=== PATIENT | male | born 1975 | race Caucasian/White ===

== ENCOUNTER 2018-10-29 18:41 | Emergency (ER) | payer OTHER ==
--- NOTE | 2018-10-29 18:52 | ED ---
General Adult HPI - General Stated complaint: Abd pain Time Seen by Provider: 10/29/18 18:44 - History of Present Illness Initial comments: Dictation was produced using [employer] dictation software. please excuse any grammatical, word or spelling errors. Chief Complaint: 43-year-old male presents with abdominal pain. History of Present Illness: Patient is a 43-year-old male who presents with chief complaint of epigastric abdominal pain. Patient reports that his symptoms began today. He was transferred by EMS from [facility] detox facility. 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 He was given 2 doses of Subutex while there. Patient is 72 hours from his last ingestion of methadone. Patient states that his symptoms lasted for several hours however improved prior to arrival. About one month ago patient had hernia surgery repair. Denies any nausea vomiting diarrhea. The ROS documented in this emergency department record has been reviewed and confirmed by me. Those systems with pertinent positive or negative responses have been documented in the HPI. All other systems are other negative and/or n oncontributory. PHYSICAL EXAM: General Impression: Alert and oriented x3, not in acute distress HEENT: Normocephalic atraumatic, extra-ocular movements intact, pupils equal and reactive to light bilaterally, mucous membranes moist. Cardiovascular: Heart regular rate and rhythm, S1&S2 audible, no murmurs, rubs or gallops Chest: Lungs clear to auscultation bilaterally, no rhonchi, no wheeze, no rales Abdomen: Bowel sounds present, abdomen soft, diffuse abdominal tenderness, non- distended, no organomegaly Musculoskeletal: Pulses present and equal in all extremities, no peripheral edema Motor: no focal deficits noted Neurological: CN II-XII grossly intact, no focal motor or sensory deficits noted Skin: Intact with no visualized rashes Psych: Normal affect and mood ED course: 43-year-old male presents with chief complaint of abdominal pain. All signs upon arrival are within acceptable limits.Laboratory evaluation was performed. IV nonacute. No leukocytosis. Abdominal labs unremarkable. Urinalysis negative. KUB x-ray shows no acute processes. Patient is reevaluated and found to be in stable medical condition. He denies any abdominal pain at this time. Patient clear for disposition back to [facility] for resumption of detoxification. At this point there is no clear obvious source however patient is asymptomatic at this time - Related Data Home Medications Medication Instructions Recorded Confirmed Acetaminophen Tab [Tylenol Tab] 650 mg PO Q4H PRN 10/29/18 10/29/18 Buprenorphine HCl [Subutex] See Taper SL DIRECTED 10/29/18 10/29/18 Calcium/Magnesium 1 - 2 tab PO TID PRN 10/29/18 10/29/18 Chlorpheniramine Maleate 4 mg PO Q4H PRN 10/29/18 10/29/18 [Chlor-Trimeton] Ibuprofen [Motrin] 600 mg PO Q6H PRN 10/29/18 10/29/18 Mirtazapine [Remeron] 15 - 30 mg PO HS PRN 10/29/18 10/29/18 Multivitamins, Thera [Multivitamin 1 tab PO DAILY 10/29/18 10/29/18 (formulary)] Ondansetron HCl [Zofran] 8 mg PO Q6H PRN 10/29/18 10/29/18 Ondansetron [Zofran] 4 mg IM Q6H PRN 10/29/18 10/29/18 Thiamine [Vitamin B-1] 100 mg PO DAILY 10/29/18 10/29/18 busPIRone HCl [Buspar] 10 mg PO TID PRN 10/29/18 10/29/18 traZODone HCL 50 - 150 mg PO HS 10/29/18 10/29/18 Allergies Allergy/AdvReac Type Severity Reaction Status Date / Time No Known Allergies Allergy Verified 10/29/18 20:01 Review of Systems ROS Statement: Those systems with pertinent positive or pertinent negative responses have been documented in the HPI. ROS Other: All systems not noted in ROS Statement are negative. Course Vital Signs 10/29/18 18:52 Temperature 98.9 F Pulse Rate 82 Respiratory 18 Rate Blood Pressure 125/82 O2 Sat by Pulse 98 Oximetry Medical Decision Making - Lab Data Result diagrams: 10/29/18 18:59 10/29/18 18:59 Lab Results 10/29/18 10/29/18 10/29/18 Range/Units 18:59 18:59 20:24 WBC 7.6 (3.8-10.6) k/uL RBC 4.64 (4.30-5.90) m/uL Hgb 13.7 (13.0-17.5) gm/dL Hct 41.6 (39.0-53.0) % MCV 89.5 (80.0-100.0) fL MCH 29.6 (25.0-35.0) pg MCHC 33.0 (31.0-37.0) g/dL RDW 15.9 H (11.5-15.5) % Plt Count 258 (150-450) k/uL Neutrophils % 66 % Lymphocytes % 20 % Monocytes % 6 % Eosinophils % 5 % Basophils % 1 % Neutrophils # 5.0 (1.3-7.7) k/uL Lymphocytes # 1.5 (1.0-4.8) k/uL Monocytes # 0.5 (0-1.0) k/uL Eosinophils # 0.4 (0-0.7) k/uL Basophils # 0.1 (0-0.2) k/uL Sodium 139 (137-145) mmol/L Potassium 4.2 (3.5-5.1) mmol/L Chloride 103 (98-107) mmol/L Carbon Dioxide 26 (22-30) mmol/L Anion Gap 10 mmol/L BUN 19 (9-20) mg/dL Creatinine 0.70 (0.66-1.25) mg/dL Est GFR (CKD-EPI)AfAm >90 (>60 ml/min/1.73 sqM) Est GFR (CKD-EPI)NonAf >90 (>60 ml/min/1.73 sqM) Glucose 119 H (74-99) mg/dL Calcium 9.2 (8.4-10.2) mg/dL Total Bilirubin 0.3 (0.2-1.3) mg/dL AST 35 (17-59) U/L ALT 39 (21-72) U/L Alkaline Phosphatase 101 (38-126) U/L Total Protein 6.2 L (6.3-8.2) g/dL Albumin 3.7 (3.5-5.0) g/dL Lipase 279 (23-300) U/L Urine Color Light Yellow Urine Appearance Clear (Clear) Urine pH 7.0 (5.0-8.0) Ur Specific [place] 1.011 (1.001-1.035) Urine Protein Negative (Negative) Urine Glucose (UA) Negative (Negative) Urine Ketones Negative (Negative) Urine Blood Negative (Negative) Urine Nitrite Negative (Negative) Urine Bilirubin Negative (Negative) Urine Urobilinogen <2.0 (<2.0) mg/dL Ur Leukocyte Esterase Negative (Negative) Disposition Clinical Impression: Abdominal pain Disposition: HOME SELF-CARE Instructions (If sedation given, give patient instructions): Abdominal Pain (ED) Is patient prescribed a controlled substance at d/c from ED?: No Referrals: None,Stated [Primary Care Provider] - 1-2 days Time of Disposition: 21:03
[2018-10-29 18:55] VITALS: PULSE 82
[2018-10-29 19:10] LABS: Basophils # (A) 0.1 k/uL (0-0.2); Basophils % (A) 1 %; Eosinophils # (A) 0.4 k/uL (0-0.7); Eosinophils % (A) 5 %; HCT 41.6 % (39.0-53.0); HGB 13.7 gm/dL (13.0-17.5); Lymphocytes # (A) 1.5 k/uL (1.0-4.8); Lymphocytes % (A) 20 %; MCH 29.6 pg (25.0-35.0); MCV 89.5 fL (80.0-100.0); Mean Platelet Volume 6.8; Monocytes # (A) 0.5 k/uL (0-1.0); Monocytes % (A) 6 %; Neutrophils % (A) 66 %; Platelet Count 258 k/uL (150-450); RBC 4.64 m/uL (4.30-5.90); RDW 15.9 % (11.5-15.5); WBC 7.6 k/uL (3.8-10.6)
[2018-10-29 19:20] LABS: ALT 39 U/L (21-72); AST 35 U/L (17-59); Albumin 3.7 g/dL (3.5-5.0); Alkaline Phosphatase 101 U/L (38-126); Anion Gap 10 mmol/L; Blood Urea Nitrogen 19 mg/dL (9-20); Calcium 9.2 mg/dL (8.4-10.2); Carbon Dioxide 26 mmol/L (22-30); Chloride 103 mmol/L (98-107); Glucose 119 mg/dL (74-99); Lipase 279 U/L (23-300); Potassium 4.2 mmol/L (3.5-5.1); Sodium 139 mmol/L (137-145); Total Bilirubin 0.3 mg/dL (0.2-1.3); Total Protein 6.2 g/dL (6.3-8.2)
--- NOTE | 2018-10-29 19:34 | XR ---
EXAMINATION TYPE: XR KUB DATE OF EXAM: 10/29/2018 COMPARISON: NONE HISTORY: Abdominal pain TECHNIQUE: 2 views FINDINGS: 2 views upright were obtained and show no sign of intestinal obstruction or pneumoperitoneu m. Fecal pattern is normal. Lung bases are clear. There are no pathologic calcifications. IMPRESSION: Nonacute abdomen.
[2018-10-29 20:30] LABS: Appearance,Urine Clear (Clear); Bilirubin,Urine Negative (Negative); Blood,Urine Negative (Negative); Color,Urine Light Yellow; Glucose,Urine (UA) Negative (Negative); Ketones,Urine Negative (Negative); Leukocyte Esterase,Urine Negative (Negative); Nitrite,Urine Negative (Negative); Protein,Urine Negative (Negative); Specific Gravity,Urine 1.011 (1.001-1.035); Urobilinogen,Urine <2.0 mg/dL (<2.0)
[2018-10-29 21:27] VITALS: BP 129/82; RESP 16; TEMP 97.6
== END 2018-10-29 21:34 | disposition home or self-care (01) ==
LOC: EC 18:41
DX: R10.13 Epigastric pain (principal); Z79.899 Other long term (current) drug therapy
CPT/HCPCS: 36415; 74018; 80053; 81003; 83690; 85025; 93005; 99284